=== PATIENT | female | born 1945 | race Caucasian/White ===

== ENCOUNTER 2016-09-19 20:48 | Inpatient (IN) | payer MEDICARE, OTHER ==
--- NOTE | ~2016-09-19 | CO ---
ADMIT: 09/19/2016 RM/LOC: 403 [facility] MR#: [id number] [address] [address] [facility] [place] [address] Consultation Report SEX: F AGE: 71 : 1945 Correction: 09/20/2016 1201 DATE OF CONSULTATION: 09/20/2016 ATTENDING PHYSICIAN: Henok Chopra CONSULTING PHYSICIAN: Raymundo Yousif MD ADDENDUM: CHIEF COMPLAINT: Right upper quadrant abdominal pain. HISTORY OF PRESENT ILLNESS: This is a pleasantly demented patient of Dr. Chopra, so really unable to get much of any history from her, but it sounds like she has had some abdominal pain, presented to the ER, found to have an elevated lipase, and then had an ultrasound done, which shows thickening of the gallbladder with numerous gallstones, so, I was asked to see her for gallstone pancreatitis. Her history is well outlined on the chart. PHYSICAL EXAMINATION: On exam, her abdomen is soft. She is nontender at this time. Again, she is pleasant, but unable to really give any information or history. ASSESSMENT: Gallstone pancreatitis. PLAN: I had a discussion with one of her family members in the room today regarding surgery. I have recommended proceeding with laparoscopic cholecystectomy with cholangiogram. I went through risks and benefits of this procedure in depth. They understand all this and agree to proceed. Raymundo Yousif MD/ modl JOB #: [id number] CC: Henok Chopra, Attending Physician Henok Chopra, Family Physician Correction: 09/20/2016 1201
--- NOTE | ~2016-09-19 | OR ---
ADMIT: 09/19/2016 RM/LOC: 403 [facility] MR#: [id number] [address] [address] [place] [address] Operative/Delivery Room Report SEX: F AGE: 71 : 1945 SURGERY DATE: 09/20/2016 SURGEON: Raymundo Yousif MD PREOPERATIVE DIAGNOSES: Acute cholecystitis, cholelithiasis, and gallstone pancreatitis. POSTOPERATIVE DIAGNOSES: Acute cholecystitis, cholelithiasis, and gallstone pancreatitis. PROCEDURE PERFORMED: Laparoscopic cholecystectomy with intraoperative cholangiogram. [employer]ESSING [employer]ORY WORKER: GIO Blank. ANESTHESIA: General endotracheal. ESTIMATED BLOOD LOSS: Approximately 50 mL. DESCRIPTION OF PROCEDURE: After appropriate informed consent was obtained, the patient was brought to the operating room. General endotracheal was induced. The patient's abdomen was prepped and draped in a sterile fashion. A small infraumbilical incision was created. Veress needle introduced. The abdomen was insufflated with CO2. A 5 mm trocar was placed. Camera was introduced and the abdomen surveyed. She had no intraabdominal adhesions. The gallbladder did appear pretty distended and inflamed. Three additional ports were placed. The gallbladder was grasped, retracted up over the edge of liver. Infundibulum was grasped, retracted laterally, and some omental adhesions were peeled down with a combination of blunt dissection as well as with cautery. She was very oozy of things that bled pretty easily on her. The cystic duct was skeletonized out. There is pretty small caliber cystic duct. A single clip was placed on cystic duct on the gallbladder side. A small ductotomy was made. Cholangiogram catheter was introduced. Intraoperative cholangiogram was obtained. This revealed prompt emptying contrast in duodenum. Good length of cystic duct. Initially, it appeared that there might be a filling defect in the common duct but I think it was just a bubble that disappeared. The catheter was removed. Three clips placed on cystic duct on the patient's side and the duct was cut between clips. The cystic artery was next identified, clipped, and divided. The gallbladder was then reflected off the liver bed using hook electrocautery. With the gallbladder freed up, it was placed in an EndoCatch bag and brought out through the subxiphoid port site. The port was reintroduced. Right upper ADMIT: 09/19/2016 RM/LOC: 403 [facility] MR#: [id number] [address] [address] [facility] [place] [address] Operative/Delivery Room Report SEX: F AGE: 71 : 1945 quadrant copiously irrigated and suctioned out. There is little bit of bleeding from the liver bed, this was controlled with cautery. Once I was satisfied with hemostasis, the subxiphoid fascial defect was closed with [id number] 0 Vicryl suture. There was some bleeding from subcutaneous tissues that was controlled with cautery. Once I was satisfied with hemostasis, all the wounds were then infiltrated with Marcaine. The abdomen was next desufflated, ports removed, skin closed with 4-0 Monocryl in the subcuticular layer. Sterile dressings were applied. Henok Mendosa assisted in this entire procedure. His help was necessary for retraction and camera driving. Raymundo Yousif MD/ percy JOB #: [id number] CC: Henok Chopra, Attending Physician Henok Chopra, Family Physician Henok Chopra MD
--- NOTE | 2016-09-20 18:07 | HP ---
ADMIT: 09/19/2016 RM/LOC: 403 [facility] MR#: [id number] [address] [address] [place] TOR[facility] [place] [address] History and Physical SEX: F AGE: 71 : 1945 DATE OF SERVICE: CHIEF COMPLAINT: Abdominal pain. HISTORY OF PRESENT ILLNESS: Colleen is a very nice 71-year-old female, who is currently being treated for history of cerebrovascular disease as well as advanced dementia. She is currently residing at an assisted living facility. Most recently, she was initiated on Seroquel secondary to paranoid delusions associated with her dementia as well as aggressive behavioral disturbances. She has actually improved quite nicely. She was actually brought from the nursing care facility with complaints of chest pain and she was given aspirin in the ambulance and she did evidently have emesis. She is evaluated by the ER, it turns out that the patient was complaining of epigastric pain. Her laboratories were consistent with pancreatitis and they deferred to my service for admission. The patient is admitted to my service. She is initially started on some antibiotic therapy secondary to some thickened gallbladder wall as well as retained stone in the gallbladder. Concern is that she had some gallstone pancreatitis. I evaluated her at her bedside in room #403 and Colleen is very pleasant this morning. She has no chest pain. No shortness of breath. No nausea, no vomiting, no abdominal pain but she does have some pain to vigorous palpation of the epigastric region and states that she does feel very safe and she does feel okay using her clear liquid diet. Otherwise, she does not really remember anything from last night and most of this is obtained through review of the ER documentation. She does thank me for coming to see her and she had no further questions after that. PAST MEDICAL HISTORY: 1. Alzheimer's dementia with behavioral disturbance. 2. Paranoid delusions. 3. Cerebrovascular disease. 4. Vitamin B12 deficiency. 5. Hyperlipidemia. MEDICATIONS: 1. Exelon patch. 2. Tylenol. 3. Maalox. 4. Crestor. 5. Vitamin B12. 6. Lexapro. 7. Ibuprofen. 8. Loperamide. 9. Mag oxide. 10.Seroquel. ALLERGIES: NO KNOWN DRUG ALLERGIES. ADMIT: 09/19/2016 RM/LOC: 403 [facility] MR#: [id number] [address] [address] [facility] [place] [address] History and Physical SEX: F AGE: 71 : 1945 FAMILY HISTORY: She does not remember any of her family history. SOCIAL HISTORY: She does not drink, smoke, or do drugs. She is retired. She lives in [place]. She has a very supportive son and [id number]. REVIEW OF SYSTEMS: Complete review of systems reviewed per HPI. PHYSICAL EXAMINATION: VITAL SIGNS: Blood pressure is 136/73, pulse 66, respiratory rate is 14, temp is 96.8. She is 97% on room air. GENERAL: She is alert and oriented x1. She is in no acute distress. She is very interactive. She makes good eye contact. She is actually quite happy today. HEART: Regular rhythm and rate. LUNGS: Clear to auscultation bilaterally. ABDOMEN: Soft, nondistended. Has positive bowel sounds. It is tender to right upper quadrant as well as epigastric palpation. EXTREMITIES: No clubbing or cyanosis. LABORATORY AND X-RAY DATA: White blood cells are 6.3, hemoglobin is 13.2, platelets are 128. Lactic acid is 1.4. Sodium is 142, potassium 3.7, chloride is 105, bicarb is 27, BUN is 20, creatinine is 1, glucose is 160, calcium is 8. Lipase is 951. Mag is 2.0. CKMB is 4.2. Troponin is less than 0.015. UA and micro is hazy but no evidence of UTI. Repeat CBC white blood cells 6.2, hemoglobin is 13.8, platelets 159. CMP; sodium is 143, potassium is 3.9, chloride is 107, bicarb is 29, BUN is 17, glucose 131, creatinine is 1, calcium is 8.2. Total bilirubin 0.2, total protein 6.8, albumin is 2.9, alkaline phosphatase 79, AST is 26, ALT is 24, lipase is 811. Procalcitonin is less than 0.05. Chest x-ray, negative portable chest. Abdominal ultrasound cholelithiasis with gallbladder wall thickening. No pericholecystic fluid. No duct dilation. EKG, no acute ST-segment changes. ASSESSMENT AND PLAN: 1. Acute pancreatitis. 2. Gallbladder wall thickening. 3. Previous chest pain. 4. History of cerebrovascular disease. 5. Alzheimer's dementia. At this time, we will go ahead and just maintain her as an inpatient status. We did ask General surgery to see the patient secondary to again gallbladder ADMIT: 09/19/2016 RM/LOC: 403 [facility] MR#: [id number] [address] [place] [address] [facility] [place] [address] History and Physical SEX: F AGE: 71 : 1945 stones and sludge was concerned that this could represent gallstone pancreatitis. We will go ahead and maintain her on a clear liquid diet for now. She is doing quite well. Continue gentle IV fluids. Vital signs are all stable. I will also have the pharmacy do medication review for potential causes of her pancreatitis as well secondary to medications. I will go ahead and just repeat a set of cardiac enzymes right now and maintain her on PT/OT. No pharmacologic DVT prophylaxis in case if she does end up needing surgery but she is on some Teds and SCDs right now. She is a full code. She is very pleasant. She is quite demented, so unclear she does actually understand everything that is going on but she denies any complaints and she feels safe. Henok Chopra MD/ percy JOB #: [id number] CC: Henok Chopra, Attending Physician Henok Chopra, Family Physician
--- NOTE | 2016-09-20 19:07 | ER ---
ADMIT: 09/19/2016 RM/LOC: 403 [facility] MR#: [id number] [address] [address] [place] [address] Emergency Room Report SEX: F AGE: 71 : 1945 DATE: 09/19/2016 HISTORY OF PRESENT ILLNESS: The patient is a 71-year-old female with a past medical history of hypertension, TIA, dementia, was brought here from nursing care facility with allegedly chest pain, unknown duration, unknown onset activities. Per EMS, she was given aspirin in the ambulance and she throws up. In the ER, the patient had epigastric pain and denied any chest pain. The patient had very mild right upper quadrant pain too, but most of the pain is epigastric pain, and patient was nauseous too. DIAGNOSTIC DATA: EKG did not show any ST or T changes or Q waves or other abnormalities or arrhythmias. Cardiac enzymes were negative. Chest x-ray is noncontributory and negative for any acute changes. PHYSICAL EXAMINATION: HEAD AND NECK: Noncontributory. LUNGS: Normal equal breath sounds bilaterally. HEART: Normal S1, S2 without any extra sounds. ABDOMEN: The patient had mild tenderness in the epigastric area. Huitron sign is negative. Abdomen has no rebound or guarding. The rest of the physical exam is noncontributory. LABORATORY DATA: The patient had WBC of 6.3 with hemoglobin of 13.2 and hematocrit of 41.3 with platelets of 128,000. Lactic acid was 1.4 and UA had 3 wbc and 1 rbc. Lipase was 951, and cardiac enzymes are negative. Ultrasound of right upper quadrant was suggestive of gallstone, mild wall thickness of the gallbladder 3-4 mm without any pericholecystic fluid. Common bile duct was 7 mm without any stones, and the diameter is normal for the age. DISPOSITION: The patient received Zofran for controlling nausea, received IV fluid in the ER. The patient was admitted to Medicine for gallstone pancreatitis for further followups and treatments. Silviano Glass MD/ percy JOB #: [id number] CC: Henok Chopra MD, Attending Physician Henok Chopra MD, Family Physician
[2016-09-22] MEDS ORDERED: B-121000 MCG/1 IM (13:59)
[2016-09-22] MEDS ORDERED: LEXAPRO DPS10 MG PO (13:59)
[2016-09-22] MEDS ORDERED: EXELON1 EAC1 TD (14:00)
[2016-09-22] MEDS ORDERED: MAALOX DPS30 ML PO (14:00)
[2016-09-22] MEDS ORDERED: VITAMIN D2400 UNIT PO (14:00)
[2016-09-22] MEDS ORDERED: IMODIUM DPS2 MG PO (14:01)
[2016-09-22] MEDS ORDERED: SEROQUEL25 MG PO (14:01)
[2016-09-22] MEDS ORDERED: QUESTRAN DPS4 GM PO (14:01)
[2016-09-22] MEDS ORDERED: NORCO 5-325 TA1 EACH PO (14:02)
[2016-09-22] MEDS ORDERED: TYLENOL DPS325 MG PO (14:02)
[2016-09-22] MEDS ORDERED: AMOXICILLIN875 MG PO (14:02)
--- NOTE | 2016-10-04 08:04 | DS ---
ADMIT: 09/19/2016 RM/LOC: 403 [facility] MR#: [id number] [address] [address] [facility] [address] Discharge Summary SEX: F AGE: 71 : 1945 ADMISSION DATE: 09/19/2016 DISCHARGE DATE: 09/21/2016 CONSULTATIONS: Jimmie Dutta MD PROCEDURES: Laparoscopic cholecystectomy. FINAL DIAGNOSES: 1. Gallstone pancreatitis resolved. 2. Nephrolithiasis. 3. Status post laparoscopic cholecystectomy. 4. Dementia with behavioral disturbances. 5. Cerebrovascular disease. 6. Hyperlipidemia. REASON FOR ADMISSION: Please see H and P. However, Colleen is admitted with abdominal pain and pancreatitis. Colleen is admitted to the service of [facility] under the care of myself, Henok Chopra MD. Receives consultation with General Surgery. She ultimately goes for an elective laparoscopic cholecystectomy secondary to her gallstone pancreatitis as well as an intraoperative cholangiogram. She has resolution of her elevated lipase pain, it is much well controlled. She has some postoperative delirium, however, is minimal. Very concerned about her potential delirium. She is out of her appropriate environment. Discussed these concerns with the family. She is medically stable at this time. We will elect to transfer her back to [facility] so she can continue rehab. I will go ahead and just maintain her on some just empiric Augmentin for the time being as there was some gallbladder thickening as well and she is postoperative. DISPOSITION: [facility]. ADMIT: 09/19/2016 RM/LOC: 403 [facility] MR#: [id number] [address] [address] [facility] [place] [address] Discharge Summary SEX: F AGE: 71 : 1945 DISCHARGE CONDITION: Stable. DISCHARGE MEDICATIONS: See medication reconciliation, it is reviewed and accurate. DISCHARGE INSTRUCTIONS: [facility]. Continue the above medication reconciliation and follow up with myself in one week. Discussed plan with the patient's granddaughter, expressed understanding, was in agreement, and had no further questions. Thirty minutes spent on discharge activities of this patient. Henok Chopra MD/ ajf JOB #: [id number] CC: Henok Chopra MD, Attending Physician Henok Chopra MD, Family Physician
--- NOTE | 2016-10-13 10:45 | CO ---
ADMIT: 09/19/2016 RM/LOC: 403 [facility] [place] MR#: [id number] [address] [address] [place] [address] Consultation SEX: F AGE: 71 : 1945 DATE OF CONSULTATION: 09/20/2016 ATTENDING PHYSICIAN: Henok Chopra CONSULTING PHYSICIAN: Raymundo Yousif MD REASON FOR CONSULTATION: Abdominal pain with emesis. HISTORY OF PRESENT ILLNESS: Colleen is a 71-year-old female with advanced dementia, who has been admitted to the hospital originally for complaints of chest pain that she had at her residence at [place]. A full cardiac workup was negative, but it was noted that her lipase was elevated at 800. Ultrasound revealed gallstones. I was unable to obtain adequate history from the patient given her past medical history, but her son who was present during my whole assessment reports that she has been having increased abdominal pain with nausea in the last several months. There was no mention of any diarrhea, constipation, or hematemesis. The pain has been located in the epigastric region. PAST MEDICAL HISTORY: Significant for: 1. Advanced dementia, diagnosed approximately two years ago. 2. Migraines. PAST SURGICAL HISTORY: Son reports no surgeries, but surgical scar in abdomen reveals possible . ALLERGIES: NO KNOWN DRUG ALLERGIES. MEDICATIONS: Outlined in chart. FAMILY HISTORY: Noncontributory. SOCIAL HISTORY: Son reports no alcohol, tobacco, or illicit drug use in her life. REVIEW OF SYSTEMS: Unobtainable due to patient's condition. PHYSICAL EXAMINATION: GENERAL: The patient is in no acute distress. She is content. HEENT: Head is atraumatic and normocephalic. EOMS are intact. Conjunctivae free of icterus, erythema, or pallor. Pinnae, free of deformities. Nose, midline. No tracheal deviation. NECK: Supple. SKIN: Negative for jaundice, clubbing, edema, pallor, or cyanosis. LUNGS: Normal respiratory effort. HEART: Distal pulses intact. Regular rate and rhythm. ABDOMEN: Soft, nondistended, mild tenderness in epigastric region. NEURO: Cranial nerves II through XII are grossly intact. ADMIT: 09/19/2016 RM/LOC: 403 [facility] [place] [place] MR#: [id number] [address] [address] [place] [facility] [place] [address] Consultation SEX: F AGE: 71 : 1945 LABORATORY DATA: White blood cell count within normal limits. LFTs within the normal limits. Lipase elevated at 800. DIAGNOSTIC IMAGING: Ultrasound of abdomen revealed common bile duct of 7 mm, gallstones with gallbladder wall thickening, but no pericholecystic fluid. ASSESSMENT: Choledocholithiasis. PLAN: The plan is to have the patient undergo laparoscopic possible open cholecystectomy with IOC performed by Dr. Yousif this afternoon. I discussed the risks, alternatives, benefits, and complications of surgery with the patient's son to which he is agreement of this plan, had all his questions answered, would like to proceed. We will get the patient on the schedule today and get her prepped for surgery and hopefully get this done sometime soon. Thanks for the consultation of this patient. GIO Blank / Raymundo Yousif MD / percy JOB #: [id number] CC: Henok Chopra, Attending Physician Henok Chopra, Family Physician
== END 2016-09-21 14:50 | disposition home or self-care (01) | DRG 417 ==
LOC: ER 20:48 → 4PCU 23:23
PROVIDERS: ADMIT Internal Medicine
DX: K80.00 Calculus of gallbladder with acute cholecystitis without obstruction (principal); K85.10 Biliary acute pancreatitis without necrosis or infection; F02.81 Dementia in other diseases classified elsewhere, unspecified severity, with behavioral disturbance; G30.9 Alzheimer's disease, unspecified; F22 Delusional disorders; R10.13 Epigastric pain; I10 Essential (primary) hypertension; R07.9 Chest pain, unspecified; I67.9 Cerebrovascular disease, unspecified; E78.5 Hyperlipidemia, unspecified; G43.909 Migraine, unspecified, not intractable, without status migrainosus; Z86.73 Personal history of transient ischemic attack (TIA), and cerebral infarction without residual deficits

== ENCOUNTER 2016-09-26 17:52 | Inpatient (IN) | payer MEDICARE, OTHER ==
[~2016-09-26] VITALS: Ht 157.5 cm; Wt 66.8 kg
[~2016-09-26 17:52] MED LIST: AMOXICILLIN875 MG PO; B-121000 MCG/1 IM; EXELON1 EAC1 TD; IMODIUM DPS2 MG PO; LEXAPRO DPS10 MG PO; MAALOX DPS30 ML PO; NORCO 5-325 TA1 EACH PO; QUESTRAN DPS4 GM PO; SEROQUEL25 MG PO; TYLENOL DPS325 MG PO; VITAMIN D2400 UNIT PO
--- NOTE | 2016-09-27 07:02 | ER ---
ADMIT: 09/26/2016 RM/LOC: 524 [facility] MR#: [id number] [address] [address] [place] [address] Emergency Room Report SEX: F AGE: 71 : 1945 DATE: 09/26/2016 CHIEF COMPLAINT: Abdominal pain. HISTORY OF PRESENT ILLNESS: The patient is a 71-year-old female, resident of memory unit at [facility] status post laparoscopic cholecystectomy with intraoperative cholangiogram in September 20, complains of persistent abdominal pain, nausea, and vomiting. Denies any fevers, chills, cough, or urinary symptoms. PAST MEDICAL HISTORY: ILLNESSES: Vascular dementia Alzheimer's type, hyperlipidemia, hypertension, kidney stones, B12 deficiency, gallstone pancreatitis, and kidney stones. OPERATIONS: , cholecystectomy, and possible kidney stone manipulation. ALLERGIES: NONE. MEDICATIONS: Please see fpc MAR. SOCIAL HISTORY: , retired, resident of memory unit at [facility]. FAMILY HISTORY: Negative per chart review. REVIEW OF SYSTEMS: Unreliable due to dementia. PHYSICAL EXAMINATION: VITAL SIGNS: Temperature 96, pulse 63, respirations 16, BP 160/79, and SaO2 of 99% on room air. GENERAL: Nontoxic, non-diaphoretic without jaundice or icterus. HEENT: Normocephalic. No evidence of epistaxis, rhinorrhea, or otorrhea. NECK: Supple without lymphadenopathy or thyromegaly. CHEST: Clear. Breath sounds equal without rales, rhonchi, or wheeze. HEART: Regular rate and rhythm without murmur, gallop, or edema. ABDOMEN: Soft, diffusely tender periumbilical to epigastrium without mass or megaly. Bowel sounds hypoactive. EXTREMITIES: No evidence of Homans sign, synovitis, or dermatitis. NEURO: EOMI. PERRLA. No evidence of drift, dysarthria, or ataxia. MENTAL STATUS: Marked dementia. MEDICAL DECISION MAKING: CT shows distended bladder, otherwise fluid noted around the gallbladder fossa and liver. Normal CBC, CMP except potassium 3.4, sodium 147, and lipase 421. UA pending. Discussed findings with Dr. Dutta and Fredo. Dr. Dutta gave orders for HIDA scan tomorrow. ADMIT: 09/26/2016 RM/LOC: 524 [facility] MR#: [id number] [address] [address] [facility] [place] [address] Emergency Room Report SEX: F AGE: 71 : 1945 DIAGNOSES: 1. Abdominal pain status post recent laparoscopic cholecystectomy. 2. Profound dementia. 3. Acute urinary retention, 400 ml on catheterization. RECOMMENDATION: Admit to inpatient Med/Surg for Dr. Tobias. ADMISSION/DISCHARGE CONDITION: Fair. Murali Garcia MD/ modl JOB #: [id number] CC: Jimmie Dutta MD, Attending Physician Henok Chopra MD, Family Physician MD Henok Mckeon MD
--- NOTE | 2016-09-28 11:59 | CO ---
ADMIT: 09/26/2016 RM/LOC: 522 [facility] MR#: [id number] 2620 [facility] [address] [place] [address] [place] T[place] [facility] [place] [address] Consultation SEX: F AGE: 71 : 1945 DATE OF CONSULTATION: 09/27/2016 ATTENDING PHYSICIAN: Jimmie Dutta CONSULTING PHYSICIAN: Genny Yoo MD REASON FOR CONSULTATION: Management and assistance with dementia. HISTORY OF PRESENT ILLNESS: Ms. Torres is a 71-year-old patient of Dr. Chopra, who has a past medical history significant for Alzheimer's dementia with behavioral disturbance, paranoid delusions, history of CVA, B12 deficiency, and hyperlipidemia, who recently was admitted last week with abdominal pain, nausea, vomiting. She underwent a lap choly and then was dismissed. It sounds as if once she got back to the skilled nursing, she was not eating very well, was having increasing abdominal pain, and therefore was brought back to the ER last night. They did a CT scan which showed a lot of fluid in the gallbladder fossa with a concern for possible biliary leak. She has been quite agitated here today and is actually pretty sleepy when I saw her now because she just received some IV fentanyl. Her son is at her bedside and reports that he does not really have any new or different concerns, just wants to find out what is going on and how she will be able to get back to [place]. PAST MEDICAL HISTORY: Significant for. 1. Alzheimer's dementia with behavioral disturbance. 2. Paranoid delusions. 3. CVA. 4. B12 deficiency. 5. Hyperlipidemia. 6. Cholecystitis, status post recent cholecystectomy. MEDICATIONS: Currently at [place] are: 1. Augmentin. 2. Lexapro 10 mg p.o. daily. 3. B12 IM once a month. 4. Seroquel 12.5 p.o. b.i.d. 5. Exelon patch 13.3, change daily. 6. Cholestyramine p.r.n. 7. Hydrocodone. 8. Loperamide. 9. Tylenol p.r.n. SOCIAL HISTORY: She does not smoke or use any significant alcohol. She is retired. She lives at [place]. She has a very supportive family. FAMILY HISTORY: Noncontributory. ALLERGIES: NO KNOWN MEDICAL ALLERGIES. ADMIT: 09/26/2016 RM/LOC: 522 [facility] MR#: [id number] [address] [address] [facility] [place] [address] Consultation SEX: F AGE: 71 : 1945 REVIEW OF SYSTEMS: Unable to be obtained as she is sleepy. PHYSICAL EXAMINATION: GENERAL: She is sleepy. She is no apparent distress. HEENT: Pupils are equal, round, reactive. Oropharynx, dry mucous membranes. NECK: Supple. HEART: Normal rate with a regular rhythm. LUNGS: Diminished breath sounds bilaterally. ABDOMEN: Soft, slightly distended. Bowel sounds were hypoactive. EXTREMITIES: No evidence of edema. SKIN: Warm and dry. ASSESSMENT AND PLAN: 1. Abdominal pain. Surgery has admitted and is further evaluated with a HIDA scan today. 2. Dementia. Certainly difficult to manage as patient has quite paranoid episodes also. 3. B12 deficiency. 4. Cerebrovascular accident. 5. Paranoid delusions. At this time, we will go ahead and continue with IV pain control. We will give her a broader range. We will also go ahead and give some IV Benadryl p.r.n. Check lipase in the morning. I spent 43 minutes in consultation Genny Yoo MD/ percy JOB #: [id number] CC: Jimmie Dutta, Attending Physician Henok Chopra, Family Physician
--- NOTE | 2016-10-13 10:45 | HP ---
ADMIT: 09/26/2016 RM/LOC: 524 [facility] MR#: [id number] [facility]#: [id number] [address] [address] [place] [address] History and Physical SEX: F AGE: 71 : 1945 DATE OF SERVICE: CHIEF COMPLAINT: Nausea with emesis and diarrhea. HISTORY OF PRESENT ILLNESS: Colleen is a 71-year-old female, who is status post laparoscopic cholecystectomy with intraoperative cholangiogram exactly one week ago. Apparently, [place] residing [place], she became distressed and started to have several episodes of nausea with emesis and diarrhea. Given her history of dementia, the patient's son was notified, and given her symptoms, she transported to the Emergency Department, where she was fully worked up at that time. She has now been admitted to the hospital for observation. Apparently, she had abdominal pain at the prison. Today, her abdominal pain is diffuse throughout her abdomen. Son denies any hematemesis, dark or bloody stools, fevers, or chills. PAST MEDICAL HISTORY: Unchanged from last time. Dementia, migraines, vitamin B12 deficiency, hyperlipidemia, and hiatal hernia. PAST SURGICAL HISTORY: Laparoscopic cholecystectomy. ALLERGIES: NO KNOWN DRUG ALLERGIES. MEDICATIONS: 1. Augmentin 875. 2. Escitalopram 10 mg. 3. Cyanocobalamin 1000 mcg. 4. Quetiapine 25 mg. 5. Rivastigmine 13.3 mg. 6. Vitamin D2, 1.25 mg. 7. Antacid simethicone 15 to 30 mL. 8. Cholestyramine powder 4 g. 9. Hydrocodone acetaminophen 5/325. 10.Loperamide 2 mg. FAMILY HISTORY: Noncontributory. SOCIAL HISTORY: Unchanged. REVIEW OF SYSTEMS: Difficult to obtain due to patient's dementia. PHYSICAL EXAMINATION: GENERAL: The patient is in moderate distress. HEENT: Head is normocephalic and atraumatic. EOMS are intact. Conjunctivae free of icterus, erythema, or pallor. Pinnae, free of deformities. Nose, midline. No tracheal deviation. NECK: Supple. SKIN: Negative for jaundice, clubbing, edema, pallor, or cyanosis. LUNGS: Normal respiratory effort. HEART: Distal pulses intact. Regular rate and rhythm. ABDOMEN: Soft, nondistended, mildly tender, diffuse throughout abdomen. ADMIT: 09/26/2016 RM/LOC: 524 [facility] MR#: [id number] [address] [address] [place] [address] History and Physical SEX: F AGE: 71 : 1945 NEURO: Cranial nerves II through XII are grossly intact. DIAGNOSTIC IMAGING: HIDA scan revealed no definitive bile leak. LABORATORY DATA: LFTs grossly normal. ASSESSMENT: 1. Abdominal pain. 2. Nausea and vomiting. 3. Diarrhea. PLAN: Given the recent HIDA results and the patient's lab work, this does not seem to be a surgical issue at this time. However, we will follow along as we admitted the patient. We will be testing her stool for any enteric pathogens, and treat her nausea, vomiting, and diarrhea in the meantime. The patient's son is agreement of this plan, had all his questions answered, and would like to proceed. IGO Blank / Raymundo Yousif MD / percy JOB #: [id number] CC: Jimmie Dutta, Attending Physician Henok Chopra, Family Physician
--- NOTE | 2016-10-29 17:09 | ER ---
ADMIT: 09/26/2016 RM/LOC: 524 [facility] MR#: [id number] [address] [address] [place] [address] Emergency Room Report SEX: F AGE: 71 : 1945 DATE: 09/26/2016 HISTORY OF PRESENT ILLNESS: A 71-year-old female who was recently discharged from the hospital after cholecystectomy and a bout of gallstone-induced pancreatitis. She apparently was at the [facility] when she started vomiting and having profuse diarrhea. She was discharged home on Augmentin. Please note the patient has profound dementia and is unable to provide a review of systems or history of the present illness. PHYSICAL EXAMINATION: GENERAL: Reveals an elderly female, in no acute distress. HEENT: Normocephalic, atraumatic. LUNGS: Clear to auscultation. CARDIOVASCULAR: No murmur but tachycardia was noted. ABDOMEN: Her lower abdomen has ecchymotic area consistent with recent surgery, decreased bowel tones. No pulsatile mass. ABDOMEN: Diffusely tender. EXTREMITIES: Unremarkable. EMERGENCY DEPARTMENT COURSE: A CT scan of the abdomen was ordered as well as a CBC, CMP, and lipase. Chest x-ray was also ordered. Labs back at this time are sodium 147, potassium 3.4, glucose 116, lipase is 421. CBC is pending at this time, as is the CT scan. The patient will be submitted over to Dr. Garcia. Mehran Dowling MD/ percy JOB #: [id number] CC: Jimmie Dutta MD, Attending Physician Henok Chopra MD, Family Physician
--- NOTE | 2016-11-01 12:38 | DS ---
ADMIT: 09/29/2016 RM/LOC: 2 [facility] MR#: [id number] [address] [place] [address] [place] [address] General Discharge Summary SEX: F AGE: 71 : 1945 ADMISSION DATE: 09/29/2016 DISCHARGE DATE: 10/02/2016 ADMITTING DIAGNOSIS: Abdominal pain. DISMISSAL DIAGNOSIS: 1. Norovirus. 2. Abdominal pain with nausea and vomiting. 3. Diarrhea. 4. Alzheimer's dementia. 5. Delusions. 6. CVA (cerebrovascular accident). 7. Vitamin B12 deficiency. 8. Hyperlipidemia. 9. Status post cholecystectomy. PROCEDURES: None. HOSPITAL COURSE: The patient was an inpatient admit with routine med/surg orders. Given that she was status post laparoscopic cholecystectomy and about a week out, we were admitting. She was given fentanyl for pain control and IV antiemetics. HIDA scan was ordered in the morning, which revealed no definitive bile leak. Overall the patient recovered well while in the hospital. Her diarrhea started to let up a bit, and her pain was improving. She was tolerating an advanced diet. Vitals remained stable throughout the hospital course. Stool cultures revealed positive Norovirus, and so the patient was treated for that. She improved on her own thanks to the help with Dr. Yoo, and she was eventually able to discharge to [facility] on 10/02/2016. DISCHARGE INSTRUCTIONS: 1. Follow up with Dr. Chopra in 7-10 days. ADMIT: 09/29/2016 RM/LOC: 522 [facility] MR#: [id number] [address] [place] [address] [facility] [place] [address] General Discharge Summary SEX: F AGE: 71 : 1945 2. Diet as tolerated. 3. Please record percent of meal consumed for next 7 [address] fax to [address] Chopra. DISCHARGE MEDICATIONS: 1. Lexapro 10 mg daily. 2. Seroquel 25 mg 1/2 tab b.i.d. 3. B12 injection 1000 mcg. IM daily for 30 days. 4. Exelon 13.3 mg daily. 5. Maalox 30 mL q.6h p.r.n. 6. Surfak 240 mg b.i.d. p.r.n. 7. Tylenol 325 mg q.4 p.r.n. GIO Blank / Raymundo Yousif MD / gorge JOB #: [id number] CC: Jimmie Dutta MD, Attending Physician Henok Chopra MD, Family Physician
== END 2016-10-02 08:50 | disposition home or self-care (01) | DRG 392 ==
LOC: ER 17:52 → 5MS 19:50
PROVIDERS: ADMIT Surgery
DX: A08.11 Acute gastroenteropathy due to Norwalk agent (principal); G30.9 Alzheimer's disease, unspecified; F02.81 Dementia in other diseases classified elsewhere, unspecified severity, with behavioral disturbance; Z23 Encounter for immunization; G43.909 Migraine, unspecified, not intractable, without status migrainosus; E78.5 Hyperlipidemia, unspecified; E53.8 Deficiency of other specified B group vitamins; K44.9 Diaphragmatic hernia without obstruction or gangrene; F22 Delusional disorders; Z86.73 Personal history of transient ischemic attack (TIA), and cerebral infarction without residual deficits; Z98.890 Other specified postprocedural states

== ENCOUNTER 2016-11-28 13:38 | Emergency (ER) | payer MEDICARE, OTHER ==
--- NOTE | 2016-12-02 13:55 | ER ---
ADMIT: 11/28/2016 RM/LOC: ER [facility] MR#: [id number] [address] [address] [place], [place] [address] Emergency Room Report SEX: F AGE: 71 : 1945 CORRECTED: 11/30/2016 1130 DJS DATE: 11/28/2016 BRIEF ADDENDUM: Please see my T-sheet for complete review of systems, past medical history, and physical exam. CHIEF COMPLAINT: Abdominal pain. HISTORY OF PRESENT ILLNESS: A 71-year-old female, who presents from [place], complaining of abdominal pain for the past day. halfway reports that she complains of pain with palpation of the left upper quadrant. Denies any nausea, vomiting, fever, diarrhea, loss of appetite, or problems with urination. She is status post cholecystectomy in September. History of the exam was greatly limited today secondary to the patient's underlying Alzheimer's dementia. Primarily gathered from old records and care home report. COURSE IN EMERGENCY ROOM: The patient was seen and examined. PHYSICAL EXAMINATION: VITAL SIGNS: She is afebrile and nontoxic. GENERAL: No acute distress. She is confused secondary to dementia. HEENT: Eyes, equal and reactive. Pharynx not erythematous. She has moist mucous membranes. NECK: Soft and supple. RESPIRATORY: No respiratory distress. No wheezes, rhonchi, or rales. HEART: Sounds are regular. No murmurs, gallops, or rubs. ABDOMEN: Soft. She does have some left upper quadrant tenderness. No rebound or guarding. No McBurney's point tenderness. SKIN: Warm and dry. No rash. EXTREMITIES: Nontender. No pedal edema. NEUROLOGIC: She is disoriented to person, place, and time. She does move all 4 extremities. She is somewhat combative at one point. I did give her 0.5 mg of Ativan IM. LABORATORY DATA: White count 4.7, hemoglobin 12.6, hematocrit 38.7, and platelets 117. Sodium 143, potassium 3.8, BUN 15, glucose 108, creatinine 1.1. Lipase 228. AST 22, ALT 20. KUB of the abdomen shows nonspecific gas pattern. ADMIT: 11/28/2016 RM/LOC: ER [facility] MR#: [id number] [address] [place] [id number] [facility] [place] [address] Emergency Room Report SEX: F AGE: 71 : 1945 No obstruction or stool burden. IMPRESSION: 1. Left upper quadrant pain, status post cholecystectomy. 2. Alzheimer's dementia. DISPOSITION: The patient is to return to care home, resume therapies as ordered, increase as tolerated Tylenol as ordered per her med rec. Follow up with Dr. Chopra this week. Questions sought and answered to best of my ability to the patient's family's satisfaction. Discharged in stable condition. GIO Griffith / Henok Olivas MD / modl JOB #: [id number] CC: Henok Olivas MD, Attending Physician Henok Chopra MD, Family Physician CORRECTED: 11/30/2016 1130 JOAQUIM
--- NOTE | 2016-12-04 17:58 | ER ---
ADMIT: 11/28/2016 RM/LOC: ER [facility] MR#: [id number] [address] [address] [place] [address] Emergency Room Report SEX: F AGE: 71 : 1945 DATE: 11/28/2016 BRIEF ADDENDUM: Please see previous dictation. Urine does return signs for acute cystitis, positive nitrite, 3+ leukocyte esterase, 425 wbc's per high power field. She does not have an elevated white count. She continues to tolerate oral feedings. Denies back pain at this time. No fever. We will start her on antibiotics as an outpatient to follow up with Dr. Chopra this week. Bactrim DS 1 tab p.o. b.i.d. for 7 days. Discharge back to [facility] in stable condition. GIO Griffith / Henok Olivas MD / rekhal JOB #: [id number] CC: Henok Olivas MD, Attending Physician Henok Chopra MD, Family Physician
== END 2016-11-28 17:24 | disposition home or self-care (01) ==
LOC: ER 13:38
DX: R10.12 Left upper quadrant pain (principal); E78.5 Hyperlipidemia, unspecified; Z86.73 Personal history of transient ischemic attack (TIA), and cerebral infarction without residual deficits